=== PATIENT | female | born 2000 | race Two or more races ===

== ENCOUNTER 2023-11-29 13:47 | Emergency (ER) | payer OTHER ==
[~2023-11-29] VITALS: Ht 154.9 cm; Wt 36.3 kg
[2023-11-29 14:32] LABS: PREGNANCY TEST URINE QUAL NEGATIVE (NEGATIVE)
[2023-11-29 14:50] VITALS: BP 99/74; TEMP 98.1; O2SAT 99
== END 2023-11-29 14:51 | disposition home or self-care (01) ==
LOC: ER 13:54
DX: N93.0 Postcoital and contact bleeding (principal); R10.2 Pelvic and perineal pain; Z60.2 Problems related to living alone
CPT/HCPCS: 84703-TC